=== PATIENT | male | born 1985 | race Caucasian/White ===

== ENCOUNTER 2020-01-15 00:02 | Inpatient (IN) | payer BC ==
[2020-01-15 00:57] LABS: #Basophils 0.1 thou/uL (0.0-0.2); #Eosinphils 1.1 thou/uL (0.0-0.7); #Lymphocytes 2.3 thou/uL (1.20-3.40); #Monocytes 1.4 thou/uL (0.11-0.59); #Neutrophils 10.4 thou/uL (1.40-6.50); %Basophils 0.7 % (0.0-1.0); %Eosinophils 7.2 % (0.0-10.0); %Lymphocytes 14.8 % (21.0-51.0); %Monocytes 9.1 % (0.0-10.0); %Neutrophils 68.2 % (42.0-75.0); Mean Corpuscular HGB CONC 32.9 g/dL (32.0-36.0); Mean Corpuscular Hemoglobin 30.6 pg (27.0-31.0); Mean Corpuscular Volume 93.1 fL (78.0-98.0); Mean Platelet Volume 8.9 fL (7.4-10.4); Platelet Count 262 thou/uL (130-400); RBC Distribution Width 13.1 % (11.5-14.5); Red Blood Cell (RBC) Count 4.58 mill/uL (4.70-6.10); White Blood Cell (WBC) Count 15.2 thou/uL (4.8-10.8)
[2020-01-15 01:16] LABS: ALT (SGPT) 17 U/L (8-55); AST (SGOT) 22 U/L (5-34); Albumin 4.3 g/dL (3.5-5.0); Alkaline Phosphatase 65 U/L (40-110); Anion Gap 12 mmol/L (10-20); BUN (Urea Nitrogen) 15 mg/dL (8.9-20.6); Bilirubin, Total 0.4 mg/dL (0.2-1.2); Calc. Creatinine Clearance 0 mL/min (70-130); Calcium 9.4 mg/dL (7.8-10.44); Carbon Dioxide 27 mmol/L (22-29); Chloride 101 mmol/L (98-107); Estimated GFR-MDRD 82; Globulin 3.8 g/dL (2.4-3.5); Glucose 109 mg/dL (70-105); Lipase 26 U/L (8-78); Potassium 3.6 mmol/L (3.5-5.1); Protein, Total 8.1 g/dL (6.0-8.3); Sodium 136 mmol/L (136-145)
[2020-01-15] MEDS ORDERED: methylPREDNISolone Sod Succ 40 MG VIAL ONE (01:48)
[2020-01-15] MEDS ORDERED: diphenhydrAMINE 50 MG/ML VIAL ONE (01:48)
--- NOTE | 2020-01-15 04:19 | PDOC.FPRHP ---
- History of Present Illness Chief Complaint: Abdominal Pain History of Present Illness: Patient is a 34 yo male who presents with complaint of abdominal pain that started at 1999 on 01/14/20. Greatest severity was a 5 out of 10, now not having any pain. Patient states he has had 3 BMs into his ileostomy bag since arrival and thinks it needs to be changed out. Reports hx of intestinal blockages, reports similar symptoms similar to past issues. Does have an ileostomy that was placed in Dec 2015, stoma is changed 2x a week. Denies fever/chills. He did try taking Tylenol at 1700 but no relief of symptoms. ED Course: Given 50 mg Benadryl, 40 mg Solumedrol, 20 mg Bentyl, and 2L NS IVF. CT abdomen reveals signs suggestive of SBO and possible intussuception per ED provider report (official report still pending). Dr. Rodriguez with General Surgery was consulted from ED, he recommends NG tube placement and IVF, plans to see in AM. He also recommends GI consult. Patient refused NG tube placement in ED. - Home Medications Comments: Sprycel 50 mg daily, Vitamin C - History PMHx: Crohn's disease, hx of multiple "intestinal blockages", CML in remission, Celiac disease, Depression PSHx: Ileostomy in 2015, Appendectomy 2007 FHx: MGM-breast cancer, MGF-brain cancer, Sister- IBS, Dad- skin cancer Social: denies tobacco or EtOH use Allergies reported as Gluten, Sulfa, NSAIDs - Review of Systems General: denies: fever/chills, weight/appetite/sleep changes, fatigue ENT: reports: nasal congestion Respiratory: reports: congestion. denies: cough, shortness of breath Cardiovascular: denies: chest pain, edema Gastrointestinal: reports: abdominal pain. denies: nausea, vomiting, diarrhea Skin: denies: rashes, lesions Musculoskeletal: denies: pain, swelling Neurological: denies: weakness - Vital signs BP: 116/82 HR: 81 RR: 16 Tmax: 98.7F Pox: 100% on RA Wt: 77 kg - Physical Exam Constitutional: NAD, awake, alert and oriented, well developed HEENT: EOMI, conjunctiva clear, grossly normal vision, grossly normal hearing, MMM Neck: supple, no JVD Chest: no-tender to palpation, no lesions Heart: RRR, normal S1/S2, no murmurs/rubs/gallops, pulses present, no edema Lungs: CTAB, no respiratory distress, good air movement, no rales/rhonchi, no wheezing Abdomen: soft, non-tender -Abdomen: hypoactive bowel sounds Musculoskeletal: normal structure, normal tone, ROM grossly normal Neurological: no focal deficit, normal sensation Skin: no rash/lesions, good turgor Heme/Lymphatic: no unusual bruising or bleeding Psychiatric: normal mood and affect, intact recent and remote memory FMR H&P: Results - Labs Result Diagrams: 01/15/20 00:41 01/15/20 00:31 Lab results: WBC 15.2 thou/uL (4.8-10.8) H 01/15/20 00:41 Hgb 14.0 g/dL (14.0-18.0) 01/15/20 00:41 Hct 42.7 % (42.0-52.0) 01/15/20 00:41 MCV 93.1 fL (78.0-98.0) 01/15/20 00:41 Plt Count 262 thou/uL (130-400) 01/15/20 00:41 Neutrophils % 68.2 % (42.0-75.0) 01/15/20 00:41 Sodium 136 mmol/L (136-145) 01/15/20 00:31 Potassium 3.6 mmol/L (3.5-5.1) 01/15/20 00:31 Chloride 101 mmol/L (98-107) 01/15/20 00:31 Carbon Dioxide 27 mmol/L (22-29) 01/15/20 00:31 BUN 15 mg/dL (8.9-20.6) 01/15/20 00:31 Creatinine 1.03 mg/dL (0.7-1.3) 01/15/20 00:31 Glucose 109 mg/dL (70-105) H 01/15/20 00:31 Calcium 9.4 mg/dL (7.8-10.44) 01/15/20 00:31 Total Bilirubin 0.4 mg/dL (0.2-1.2) 01/15/20 00:31 AST 22 U/L (5-34) 01/15/20 00:31 ALT 17 U/L (8-55) 01/15/20 00:31 Alkaline Phosphatase 65 U/L (40-110) 01/15/20 00:31 Serum Total Protein 8.1 g/dL (6.0-8.3) 01/15/20 00:31 Albumin 4.3 g/dL (3.5-5.0) 01/15/20 00:31 Lipase 26 U/L (8-78) 01/15/20 00:31 - Radiology Interpretation CT scan - abdomen Status: report reviewed by me (There is a mild dilation of the mid to distal small bowel loops to the level of the ileostomy. The oral contrast media stopped in the mid abdomen. There is a question target sign seeing in the right abdomen in the image of 36 and 37, intussusception cannot be excluded. Comparison with prior imaging may be helpful.) FMR H&P: A/P - Problem List (1) Small bowel obstruction Current Visit: Yes Status: Acute Code(s): K56.609 - UNSP INTESTNL OBST, UNSP TO PARTIAL VERSUS COMPLETE OBST (2) CML in remission Current Visit: Yes Status: Acute Code(s): C92.11 - CHRONIC MYELOID LEUKEMIA , BCR/ABL-POSITIVE, IN REMISSION (3) Crohn's disease Current Visit: Yes Status: Acute Code(s): K50.90 - CROHN'S DISEASE, UNSPECIFIED, WITHOUT COMPLICATIONS Qualifiers: Gastrointestinal tract location: unspecified location Digestive disease complication type: with intestinal obstruction Qualified Code(s): K50.912 - Crohn's disease, unspecified, with intestinal obstruction - Plan Patient is a 34 yo male who presents with abdominal pain is admitted for SBO: #SBO -CT abdomen c/w signs of SBO in mid-bowel, possible suggestion of intussusception -Consult General Surgery, Dr. Rodriguez-appreciate recs -Called from ED-recommends NG tube placement, IVF, will see patient in AM -Patient refuses NG tube placement at this time, will readdress again later today -continue maintenance IVF LR @ 120 ml/hr -Consult GI in AM #Crohn's disease -s/p ileostomy in 2015, has stoma exchanged 2x/week -continue home meds -stress steroid dose (Solumedrol 40 mg) given in ED #CML, currently in remission -continue home med Sprycel -monitor CBC -WBC 15.2 #Nasal Congestion -Afrin nasal spray for 3 days Diet: NPO-sips of water & ice chips okay VTE: hold anticoagulation pending surgery eval Code status: Dispo: Stable, admitted to inpatient on medical unit. General Surgery consulted , appreciate recs. Plan to consult GI in AM. Anticipate LOS >48 hrs. FMR H&P: Upper Level - Plan Date/Time: 01/15/20 0418 Shannan Oneill DO, have evaluated this patient and agree with findings/plan as outlined by music intern resident. Pertinent changes/additions are listed here. Pt is a 34 yo M with PMH of Chrons disease s/p ileostomy 12/2015, hx of CML, and Celiac Disease presenting for abd pain, onset last night. He was found to have SBO and possible intuscusseption on imaging. In the ED he received 2L NS, Solumedrol, and Bentyl. Since he has been in the ED, he reports three BM into ileostomy bag and resolved pain. VS: BP 116/82, P81, R16, T98.7, O2100% RA PE: Gen: well developed, NAD HEENT: Moist MM, no LAD, no JVD Heart: RRR, no murmurs or extra sounds. Distal pulses 2+ Lungs: CTAB, no wheezing. No increased work of breathing Abd: soft, nontender, BS+ Ext: no cyanosis or edema Skin: no rashes or wounds present Psych: AOx3, normal mood Pertinent Labs/Imaging: WBC 15.2 CTabd: mild dilation of the mid to distal small bowel loops to the level of the ileostomy. Oral contrast media stopped in the mid abd. Questionable target sign seen in the R abd. A/P: Small Bowel Obstruction in the setting of Chrons Disease s/p ileostomy, likely resolved: -Dr. Rodriguez, General Surgery, consulted in ED and recommended NG tube placement and IVF. Pt refused NG tube placement in ED, but now having bowel movements and pain resolved. NPO status, advance as tolerated, but pt refuses to eat any hospital food d/t fear of cross contamination and severe gluten allergy. -s/p 2L IVF, continue mIVF Hx of CML -continue home Sprycel Celiac Disease -gluten free diet when PO DVT PPx: SCD GI PPx: none Code status: Full Addendum - Attending - Attending Attestation Date/Time: 01/15/20 4122 I personally evaluated the patient and discussed the management with Dr. Gillespie I agree with the History, Examination, Assessment and Plan documented above with any addition or exceptions noted below. 34 yo male s/p colectomy for Chrohn 's disease with ileostomy and history Celiac disease. 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 Patient visiting local area he typically receives GI care in the [place]. Patient with acute abdominal pain/pressure and presented with SBO and questionable intussecption. Currently abdomen soft and patient with pain relief s/p 3 large BM. Pending General surgery recommendation could advance diet and d/ c today.
[2020-01-15] MEDS ORDERED: Sodium Chloride 0.9% 1,000 ML IV SCH (06:15)
[2020-01-15] MEDS ORDERED: Senokot S 8.6-50 MG TAB PO PRN (07:41)
[2020-01-15] MEDS ORDERED: Ondansetron PF 4 MG/2 ML Vial IVP PRN (07:41)
[2020-01-15] MEDS ORDERED: Ondansetron ODT 4 MG TAB PO PRN (07:41)
[2020-01-15] MEDS ORDERED: Calcium Carbonate 500 MG ChewTAB PO PRN (07:41)
[2020-01-15] MEDS ORDERED: Lactated Ringer's 1,000 ML IV SCH (07:41)
[2020-01-15] MEDS ORDERED: Acetaminophen 325 MG TAB PO PRN (07:41)
[2020-01-15] MEDS ORDERED: AFRIN NASAL MIST 15 ML BOT NS SCH (09:00)
--- NOTE | 2020-01-15 09:28 | HP ---
CHIEF COMPLAINT: Small bowel obstruction. HISTORY OF PRESENT ILLNESS: The patient is a 34-year-old male, who has had at least a 5-year history of Crohn disease. He underwent an abdominoperineal resection with total proctocolectomy in February 2016. Since then, he has occasional small bowel obstruction. He usually treats it with prune juice and massaging his abdomen. He had a hospitalization 2 years ago for a blockage. Last night, he had another one that had no help with massage or prune juice, but his ostomy is now working fine. He feels fine. He takes no medications for his Crohn's. PAST MEDICAL HISTORY: 1. Leukemia. 2. Crohn's. 3. Celiac. 4. Sleep apnea. PAST SURGICAL HISTORY: 1. Abdominoperineal resection. 2. He had an appendectomy in 2007. MEDICATIONS: 1. Sprycel 50 mg daily. 2. Multivitamins. 3. Probiotics. FAMILY HISTORY: 1. Hypertension. 2. Hyperlipidemia. 3. Skin cancer. 4. Irritable bowel. ALLERGIES: SULFA, NONSTEROIDALS, AND GLUTEN. 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 His GI is there. No tobacco. No alcohol. PHYSICAL EXAMINATION: VITAL SIGNS: Temperature 98, pulse 73, blood pressure 101/63. GENERAL: Well-developed, well-nourished male, in no apparent distress. HEENT: Unremarkable. LUNGS: Clear. HEART: Regular rate and rhythm. ABDOMEN: Soft. He has a parastomal hernia that reduces. There is no significant tenderness. His ostomy is working well and healthy. LABORATORY DATA: His white count is 15, H and H of 14 and 42, platelet count 262. Electrolytes are fine. DIAGNOSTIC DATA: His CT scan showed small bowel obstruction with intussusception at the ileostomy. ASSESSMENT: Parastomal hernia, probably the cause, that is now reduced and he is doing well. PLAN: We will allow him to take liquids if tolerated. He can be discharged with followup with his colorectal surgeon in the next few days. Job ID: [id number]
--- NOTE | 2020-01-15 09:34 | CT ---
PRELIMINARY REPORT/[facility]/EMERGENCY AFTER HOURS PROCEDURE: EXAM: CT Abdomen and Pelvis with Intravenous Contrast CLINICAL HISTORY: M34 presents to the ED with c/o abdominal pain, reports ileostomy (Dec 2015), pain started at 1999 to day. Reports hx of intestinal blockages, reports similar symptoms. Denies knowledge of fevers. Report s taking Tylenol at 1700. Pt report having allergies and that daughter has strep throat. Reports stom a is changed 2x a week TECHNIQUE: Axial computed tomography images of the abdomen and pelvis with intravenous contrast. CONTRAST: With; ISOVUE PO & ISOVUE 370,100mL COMPARISON: None provided. FINDINGS: LUNG BASES: No basilar airspace consolidation or pleural effusion. LIVER: Unremarkable. GALLBLADDER AND BILE DUCTS: Unremarkable. No calcified stone. No ductal dilation. PANCREAS: Unremarkable. SPLEEN: Unremarkable. ADRENAL GLANDS: Unremarkable. KIDNEYS, URETERS, AND BLADDER: Unremarkable. No hydronephrosis or nephrolithiasis. No ureteral or barb dder calculi. STOMACH AND BOWEL: Has had a total colectomy. There is a mild dilation of the mid to distal small bowel loops to the level of the ileostomy. The or al contrast media stopped in the mid abdomen. There is a question target sign seeing in the right abd omen in the image of 36 and 37, intussusception cannot be excluded. APPENDIX: No CT evidence for appendicitis. PERITONEUM: No free fluid. No free air. LYMPH NODES: No lymphadenopathy. REPRODUCTIVE: Unremarkable as visualized. VASCULATURE: The patient has a IVC filter. BONES: No fracture or suspicious osseous abnormality. ABDOMINAL WALL AND SOFT TISSUES: Unremarkable. MISCELLANEOUS: There is a ileostomy in the right lower quadrant. IMPRESSION: There is a mild dilation of the mid to distal small bowel loops to the level of the ileostomy. The or al contrast media stopped in the mid abdomen. There is a question target sign seeing in the right abd omen in the image of 36 and 37, intussusception cannot be excluded. Comparison with prior imaging [facility] be helpful ELECTRONICALLY SIGNED BY: Delisa Gonzalez MD Jan 15, 2020 2:57:57 AM SALES SERVICE EXECUTIVE This report is intended for review by the ordering physician only, in accordance of law. If you recei ve this report in error, please call [facility] at [phone]. FINAL REPORT CT ABDOMEN AND PELVIS WITH CONTRAST: HISTORY: Abdominal pain. COMPARISON: None. FINDINGS: There is fecalization of small bowel to the ostomy which appears to have fat herniation around the os [place] narrowing the lumen of bowel. This likely causes a low grade bowel obstruction. IMPRESSION: Fat herniation adjacent to the ileum at the ileostomy likely causing some narrowing and partial obstr uction of the ileostomy. Follow-up radiographs of the abdomen may be beneficial to evaluate for contr ast transit. Findings and impression are concordant with the preliminary report by [facility]. POS: OFF
[2020-01-15] MEDS ORDERED: Iopamidol-370 76% 500 ML 1 ML ONE (10:22)
[2020-01-15 10:40] VITALS: BMI 25.8
[2020-01-15 11:16] VITALS: BP 126/76; TEMP 97.9
== END 2020-01-15 11:35 | disposition home or self-care (01) | DRG 394 ==
LOC: ERS 00:02 → SURG A 03:47
PROVIDERS: ADMIT Surgery; ATTEND Surgery
DX: K43.3 Parastomal hernia with obstruction, without gangrene (principal); K50.90 Crohn's disease, unspecified, without complications; C92.11 Chronic myeloid leukemia, BCR/ABL-positive, in remission; K90.0 Celiac disease; Z79.899 Other long term (current) drug therapy; Z88.2 Allergy status to sulfonamides; Z88.8 Allergy status to other drugs, medicaments and biological substances; Z91.018 Allergy to other foods; Z90.49 Acquired absence of other specified parts of digestive tract; Z93.2 Ileostomy status
CPT/HCPCS: 74177; 80053; 83690; 85025; 96361; 96372; 96374; 96375; J0500; J1200; J2920; Q9967